=== PATIENT | male | born 1960 | race African-American/Black ===

== ENCOUNTER 2021-12-26 20:01 | Emergency (ER) | payer SELFPAY ==
[~2021-12-26] VITALS: Ht 177.8 cm; Wt 82.0 kg
[2021-12-26] MEDS ORDERED: MORPHINE SULFATE 4 MG/ML CPJ (NOT FOR IM USE) IV STA (20:20)
[2021-12-26] MEDS ORDERED: ONDANSETRON HCL 4MG/2ML INJ IV STA (20:20)
[2021-12-26] MEDS ORDERED: KETAMINE HCL 50 MG/ML 10ML IV ONE (20:30)
[2021-12-26] MEDS ORDERED: SODIUM CHLORIDE 0.9% 1,000 ML IV ONE (20:30)
[2021-12-26] MEDS ORDERED: PROPOFOL 200MG/20ML VIAL IV ONE (20:30)
[2021-12-26 21:16] LABS: BASOPHILS % 0.6 % (0.0-2.0); EOSINOPHILS % 1.4 % (0.0-5.0); HEMATOCRIT. 45.2 % (42.0-52.0); HEMOGLOBIN. 15.1 g/dL (14.0-18.0); LYMPHOCYTES % 28.9 % (20.0-50.0); MEAN CORPUSCULAR VOLUME 86.6 fL (80.0-94.0); MEAN PLATELET VOLUME 8.3 fl (7.4-10.4); MONOCYTES % 8.2 % (2.0-8.0); NEUTROPHILS % 60.9 % (40.0-76.0); PLATELET 187 x1000/uL (130-400); RED BLOOD CELL COUNT 5.22 mill/uL (4.7-6.1); RED CELL DISTRIBUTION WIDTH 15.7 % (11.6-14.6)
[2021-12-26 21:24] LABS: CHLORIDE 106 mEq/L (98-107)
[2021-12-26 21:28] LABS: ETHANOL BLOOD < 10 mg/dL
[2021-12-27] MEDS ORDERED: IBUP-2029 MT (00:45)
[2021-12-27] MEDS ORDERED: HYDR-4001 MT (00:45)
[2021-12-27 04:31] VITALS: BP 173/97
== END 2021-12-27 05:56 | disposition home or self-care (01) ==
LOC: ER 20:01
DX: S82.392A Other fracture of lower end of left tibia, initial encounter for closed fracture (principal); S82.492A Other fracture of shaft of left fibula, initial encounter for closed fracture; I10 Essential (primary) hypertension; V49.49XA Driver injured in collision with other motor vehicles in traffic accident, initial encounter; Y93.89 Activity, other specified; Y92.89 Other specified places as the place of occurrence of the external cause; Y99.8 Other external cause status; F17.290 Nicotine dependence, other tobacco product, uncomplicated; F15.10 Other stimulant abuse, uncomplicated
CPT/HCPCS: 27788; 36415; 71045; 73590; 73610; 80053; 80320; 85025; 96361; 96374; 96375; 99152; 99285; J2270; J2405; J2704; J3490; J7030; Z7610; G0480